=== PATIENT | female | born 1945 | race Caucasian/White ===

== ENCOUNTER 2017-02-28 07:01 | Emergency (ER) | payer MEDICARE ==
[2017-02-28 07:59] LABS: BASOPHILS 0.2 % (0.0-2.0); EOSINOPHILS 0.8 % (0-7); HEMATOCRIT 35.8 % (36.0-48.0); HEMOGLOBIN 11.4 g/dL (12-16); IMMATURE GRANULOCYTES 0.3 % (0-5); LYMPHOCYTES 12.5 % (15-50); MCH 30.3 pg (26.0-34.0); MCHC 31.8 g/dL (31.0-37.0); MCV 95.2 fL (80.0-100.0); MONOCYTES 3.9 % (2-11); NEUTROPHILS 82.3 % (40-80); PLATELET COUNT 351 10x3/uL (130-400); RBC 3.76 10x6/uL (4.00-5.40); RDW 13.3 % (11.5-14.5); WBC 6.7 10x3/uL (4.8-10.8)
[2017-02-28 08:10] LABS: ALBUMIN 3.6 g/dL (3.4-5.0); ALKALINE PHOSPHATASE 103 U/L (46-116); ALT (SGPT) 37 U/L (10-68); BILIRUBIN - TOTAL 0.21 mg/dL (0.2-1.3); CALC OSMOLALITY 290 mosm/kg (275-300); CALCIUM 10.5 mg/dL (8.5-10.1); CARBON DIOXIDE 30.7 mmol/L (21.0-32.0); CHLORIDE - SERUM 104 mmol/L (98-107); CREATININE - SERUM 1.6 mg/dL (0.6-1.3); GLUCOSE 104 mg/dL (74-106); POTASSIUM - SERUM 3.6 mmol/L (3.5-5.1); PROTEIN - SERUM 6.3 g/dL (6.4-8.2); SODIUM 144 mmol/L (136-145); UREA NITROGEN 24 mg/dL (7-18); eGFR NON AFRICAN AMERICAN 34 mL/min (90-120)
[2017-02-28 08:21] LABS: CHOL - HDL RATIO 2.8 ratio (2.3-4.1); CHOLESTEROL, TOTAL 219 mg/dL (0-200); CREATINE KINASE 58 UL (21-215); HDL CHOLESTEROL 78 mg/dL (32-96); LDL CHOLESTEROL 118 mg/dL (0-100); LDL-HDL RATIO 1.5 ratio (1.5-3.5); TRIGLYCERIDE 119 mg/dL (30-200)
[2017-02-28 08:22] LABS: TROPONIN-I < 0.017 ng/mL (0.000-0.060)
== END 2017-02-28 12:01 | disposition home or self-care (01) ==
LOC: D.ER 07:01
PROVIDERS: Emergency Medicine
DX: K21.9 Gastro-esophageal reflux disease without esophagitis (principal); J44.9 Chronic obstructive pulmonary disease, unspecified; I10 Essential (primary) hypertension; F32.9 Major depressive disorder, single episode, unspecified; C95.90 Leukemia, unspecified not having achieved remission

== ENCOUNTER 2017-06-27 11:33 | Day surgery (SDC) | payer MEDICARE ==
[~2017-06-27] VITALS: Ht 175.3 cm; Wt 78.6 kg
[2017-06-27] MEDS ORDERED: ZYLOPRIM300 MG PO (12:43)
[2017-06-27] MEDS ORDERED: BUPROPION HCL75 MG PO (12:44)
[2017-06-27 12:51] LABS: HEMATOCRIT 33.6 % (36.0-48.0); HEMOGLOBIN 10.7 g/dL (12-16); MCH 27.9 pg (26.0-34.0); MCHC 31.8 g/dL (31.0-37.0); MCV 87.7 fL (80.0-100.0); MEAN PLATELET VOLUME 9.2 fL (7.4-10.4); RBC 3.83 10x6/uL (4.00-5.40); WBC 8.5 10x3/uL (4.8-10.8)
[2017-06-27] MEDS ORDERED: PHENERGAN25 M1 PO (12:53)
[2017-06-27] MEDS ORDERED: REGLAN10 MG PO (12:54)
[2017-06-27] MEDS ORDERED: OMEPRAZOLE40 MG PO (12:55)
[2017-06-27] MEDS ORDERED: ROZEREM8 MG PO (12:56)
[2017-06-27] MEDS ORDERED: BUSPAR5 MG PO (12:57)
[2017-06-27] MEDS ORDERED: CARAFATE1 G PO (12:58)
[2017-06-27] MEDS ORDERED: PEPCID40 MG PO (12:59)
[2017-06-27] MEDS ORDERED: KLOR-CON M2020 MEQ PO (13:01)
[2017-06-27] MEDS ORDERED: EFFEXOR75 MG PO (13:02)
[2017-06-27] MEDS ORDERED: DILT-XR240 MG PO (13:05)
[2017-06-27 13:19] VITALS: BP 126/75; Ht 175.3 cm; Wt 78.6 kg
--- NOTE | 2017-06-27 14:49 | NUR ---
1445 DISCHARGE INSTRUCTIONS COMPLETE. NO QUESTIONS OR CONCERNS AT THIS TIME. ESCORTED OUT AND ACCOMPANIED BY DAUGHTER.
--- NOTE | 2017-06-29 08:48 | OP ---
PATIENT NAME: REGULO DIAZ MEDICAL RECORD: [id number] :47 LOCATION:[facility] ADMISSION DATE: SURGEON: JANNETTE CASTILLO DO DATE OF OPERATION: 06/27/2017 PROCEDURE: EGD. INDICATION FOR PROCEDURE: Nausea, generalized abdominal pain, melenic stools, abnormal weight loss. SCOPE: Olympus video gastroscope. MEDICATIONS: Propofol 100 mg IV per anesthesia. ESTIMATED BLOOD LOSS: Minimal. COMPLICATIONS: None. FINDINGS: Informed consent was given. The patient was made comfortable with the above medication. After reaching an adequate level of sedation by slow IV push, the patient was placed on her left side. The endoscope was advanced under direct visualization through the mouth to the third portion of the duodenum. The upper, middle, and lower thirds of the esophagus appeared normal. At the GE junction, there was very mild evidence of LA class A reflux-induced esophagitis. The endoscope was advanced beyond the GE junction and retroflexed to view the cardia where a small sliding hiatal hernia was present. In the fundus and body of the stomach, there appeared to be some congestion/edema. As the endoscope was advanced down to the antrum and prepyloric region, there was erythema and granularity consistent with gastritis. Random biopsies were taken to submit for histology and to rule out H. pylori. The endoscope was advanced beyond the pylorus into the duodenum where the bulb and second portion as well as the third portion of the duodenum appeared normal. The scope was withdrawn from the patient. The patient tolerated the procedure well and there were no complications. IMPRESSION: 1. LA class A reflux-induced esophagitis. 2. Small sliding hiatal hernia. 3. Erythema, granularity, and congestion consistent with gastritis with biopsies taken. PLAN AND RECOMMENDATIONS: 1. Discharge home when recovery parameters are met. 2. Proceed with colonoscopy as scheduled. 3. GERD diet and reflux precautions. 4. Continue current medications including omeprazole 40 mg daily and Carafate 1 gram q.i.d. 5. Follow up biopsy specimen results. 6. Further recommendations will follow biopsy results and findings at time of colonoscopy. TRANSINT:[id number] Voice Confirmation ID: [id number] DOCUMENT ID: [id number] OPERATIVE REPORT [id number] REGULO DIAZ JANNETTE CASTILLO DO at 7267 CC: [id number] DICTATION DATE: 06/27/17 1404 BLINTZE ROLLER: 06/27/[address] [facility] [place] 06/27/17 [place] [id number] [place] [id number]
== END 2017-06-27 14:45 | disposition home or self-care (01) ==
LOC: D.OPS 11:33
PROVIDERS: Internal Medicine Gastroenterology
DX: R63.4 Abnormal weight loss (principal); R10.9 Unspecified abdominal pain; I10 Essential (primary) hypertension; G47.30 Sleep apnea, unspecified; Z87.891 Personal history of nicotine dependence; Z01.812 Encounter for preprocedural laboratory examination

== ENCOUNTER 2017-07-09 06:06 | Day surgery (SDC) | payer MEDICARE ==
[~2017-07-09] VITALS: Ht 175.3 cm; Wt 78.6 kg
[~2017-07-09 06:06] MED LIST: BUPROPION HCL75 MG PO; BUSPAR5 MG PO; CARAFATE1 G PO; DILT-XR240 MG PO; EFFEXOR75 MG PO; KLOR-CON M2020 MEQ PO; OMEPRAZOLE40 MG PO; PEPCID40 MG PO; PHENERGAN25 M1 PO; REGLAN10 MG PO; ROZEREM8 MG PO; ZYLOPRIM300 MG PO
[2017-07-09 07:03] LABS: BASOPHILS 0 % (0-2); EOSINOPHILS 0.7 % (0-7); HEMATOCRIT 34.5 % (36.0-48.0); HEMOGLOBIN 11.2 g/dL (12-16); IMMATURE GRANULOCYTES 0.2 % (0-5); LYMPHOCYTES 14.7 % (15-50); MCH 28.1 pg (26.0-34.0); MCHC 32.5 g/dL (31.0-37.0); MCV 86.5 fL (80.0-100.0); MEAN PLATELET VOLUME 9.4 fL (7.4-10.4); MONOCYTES 3.4 % (2-11); PLATELET COUNT 455 10x3/uL (130-400); RBC 3.99 10x6/uL (4.00-5.40); RDW 14.8 % (11.5-14.5); WBC 10.2 10x3/uL (4.8-10.8)
[2017-07-09] MEDS ORDERED: ACETAMINOPHEN500 M1 PO (07:06)
[2017-07-09 07:08] LABS: APTT 27.7 SECONDS (22.8-39.4); INR 1.01 (0.85-1.17); PROTIME 13.1 SECONDS (11.6-15.0)
[2017-07-09 07:09] VITALS: BP 138/80; Ht 175.3 cm; Wt 78.6 kg
--- NOTE | 2017-07-09 10:20 | NUR ---
1000-RECD FROM GI LAB. ALERT. RESP WITH EASE. 1015-FULL LIQUIDS SERVED.
--- NOTE | 2017-07-09 10:48 | NUR ---
1045-DISCHARGE INSTRUCTIONS REVIEWED. SISTER CALLED TO TRANSPORT HER HOME.
--- NOTE | 2017-07-10 09:13 | OP ---
PATIENT NAME: REGULO DIAZ MEDICAL RECORD: [id number] :47 LOCATION:D[facility] ADMISSION DATE: SURGEON: JANNETTE CASTILLO DO DATE OF OPERATION: 07/09/2017 PROCEDURE: Colonoscopy with biopsy and polypectomy. INDICATIONS FOR PROCEDURE: Diarrhea, abnormal weight loss, generalized abdominal pain. SCOPE: [employer] video pediatric colonoscope. MEDICATIONS: Propofol 600 mg IV per anesthesia. WITHDRAWAL TIME: 30 minutes. ESTIMATED BLOOD LOSS: Minimal. COMPLICATIONS: None. FINDINGS: Informed consent was given. The patient was made comfortable with the above medication. After reaching an adequate level of sedation by slow IV push, the patient was placed on her left side. A digital rectal examination was performed and was normal. The endoscope was then advanced under direct visualization through the rectum to the terminal ileum. Scope was slowly withdrawn and mucosa was carefully examined. The prep quality was good. There were 2 cecal polyps which were benign-appearing and sessile. They measured approximately 3-5 mm in diameter. Both were removed with hot snare in 1 piece and completely retrieved. There were 3 smaller benign-appearing sessile polyps measuring approximately 3-6 mm in diameter. They were all removed using a hot snare in 1 piece and completely retrieved. There was a larger transverse polyp which measured approximately 1.2-1.4 cm in size. It was a semi-pedunculated with a very small and narrow stalk as well as a short stalk. It was removed using a hot snare and completely retrieved with the [employer]. There was a small remaining segment of polypoid tissue at the base of the stomach which was completely removed with a snare and then the edges were ablated using the tip of the snare. In the descending colon, there were 3 benign-appearing sessile polyps, which measured approximately 3-6 mm in diameter. They were all removed with a hot snare in 1 piece and completely retrieved. Random biopsies were taken throughout the colon to submit for histology and to rule out microscopic colitis. Stool was collected during the study to rule out infectious disease contributing to diarrhea. In the rectum, there were some erythematous spots with very small central ulcerations which could be prep related. Biopsies were taken with cold forceps to submit for histology. Retroflexion was performed in the rectum with a normal appearance. The scope was then withdrawn from the patient. The patient tolerated the procedure well and there were no complications. IMPRESSION: 1. Multiple polyps as described above, removed with hot snare and retrieved. 2. Possible proctitis versus prep related colitis. Biopsies taken. 3. Random biopsies were taken and stool was collected to rule out infectious disease and microscopic colitis as cause of diarrhea. 4. There was moderate diverticulosis of the descending and sigmoid colon. OPERATIVE REPORT [id number] REGULO DIAZ PLAN AND RECOMMENDATIONS: 1. Discharge home when recovery parameters are met. 2. Follow up biopsy specimen results. 3. High fiber diet. 4. Continue current medications. 5. Okay to use Imodium qsbx-vty-nsekfis for loose stools. 6. We will provide a prescription for diet dicyclomine 20 mg b.i.d. p.r.n. loose stools or abdominal pain. 7. Recall colonoscopy will be dependent on results of biopsy specimens, but I anticipate a 6 month to 1 year recall regarding the polyps removed and the number of polyps. This may change once the pathology report is received. 8. Further recommendations following results of biopsy specimens. TRANSINT:[id number] Voice Confirmation ID: [id number] DOCUMENT ID: [id number] JANNETTE CASTILLO DO at 0913 CC: [id number] DICTATION DATE: 07/09/17 0942 [employer] P[employer] MACH[employer] OPERATOR: 07/09/17 1524 [facility] 07/09/17 [place] [id number] [place] [address]
== END 2017-07-09 10:45 | disposition home or self-care (01) ==
LOC: D.OPS 06:06
PROVIDERS: Anesthesiology
DX: R19.7 Diarrhea, unspecified (principal); R10.84 Generalized abdominal pain; R63.4 Abnormal weight loss; I10 Essential (primary) hypertension; K21.9 Gastro-esophageal reflux disease without esophagitis; D12.0 Benign neoplasm of cecum; D12.3 Benign neoplasm of transverse colon; D12.4 Benign neoplasm of descending colon; Z01.812 Encounter for preprocedural laboratory examination

== ENCOUNTER 2020-06-14 08:36 | Day surgery (SDC) | payer MEDICARE ==
[~2020-06-14] VITALS: Ht 175.3 cm; Wt 91.8 kg
[~2020-06-14 08:36] MED LIST changes: +ACETAMINOPHEN500 M1 PO
[2020-06-14 09:05] LABS: BASOPHILS 0 % (0-2); EOSINOPHILS 1.2 % (0-7); HEMATOCRIT 40.5 % (36.0-48.0); HEMOGLOBIN 12.9 g/dL (12-16); IMMATURE GRANULOCYTES 0.2 % (0-5); LYMPHOCYTES 14.5 % (15-50); MCH 31.7 pg (26.0-34.0); MCHC 31.9 g/dL (31.0-37.0); MCV 99.5 fL (80.0-100.0); MEAN PLATELET VOLUME 9.9 fL (7.4-10.4); MONOCYTES 7.5 % (2-11); NEUTROPHILS 76.6 % (40-80); PLATELET COUNT 342 10x3/uL (130-400); RBC 4.07 10x6/uL (4.00-5.40); WBC 9.2 10x3/uL (4.8-10.8)
[2020-06-14 09:14] LABS: ANION GAP 14.4 mmol/L (8-16); CALCIUM 8.4 mg/dL (8.5-10.1); CARBON DIOXIDE 26.9 mmol/L (21.0-32.0); CREATININE - SERUM 2.4 mg/dL (0.6-1.3); POTASSIUM - SERUM 3.3 mmol/L (3.5-5.1)
[2020-06-14] MEDS ORDERED: PROAIR HFA8.5 G1 (09:30)
[2020-06-14] MEDS ORDERED: CRESTOR20 MG PO (09:35)
[2020-06-14] MEDS ORDERED: JAKAFI5 MG PO (09:36)
[2020-06-14] MEDS ORDERED: ULTRAM50 MG PO (09:37)
[2020-06-14] MEDS ORDERED: KLONOPIN0.5 MG PO (09:38)
[2020-06-14] MEDS ORDERED: TOPROL XL50 MG PO (09:39)
[2020-06-14 09:45] VITALS: BP 131/92; Ht 175.3 cm; Wt 91.8 kg
--- NOTE | 2020-06-14 11:35 | NUR ---
DC INSTRUCTIONS GIVEN TO PT. STATES UNDERSTANDING. PT'S ANIMAL IMPERSONATOR WAS CALLED AND WAS TOLD TO ARRIVE TO [facility] H[facility]PITAL AT NOON TO SIGNAL PERSON PT.
--- NOTE | 2020-06-14 11:50 | NUR ---
DC'D IV CATH FULLY INTACT. WILL DC PT FROM HOSPITAL SHORTLY
--- NOTE | 2020-06-14 11:53 | NUR ---
PT LEFT UNIT VIA WC AT 1157
--- NOTE | 2020-06-15 15:26 | OP ---
PATIENT NAME: REGULO DIAZ MEDICAL RECORD: [id number] :47 LOCATION:[facility] ADMISSION DATE: SURGEON: JANNETTE CASTILLO DO DATE OF OPERATION: 06/14/2020 PROCEDURE: Colonoscopy with polypectomy. INDICATIONS FOR PROCEDURE: Screening for colorectal cancer, family history positive for colon cancer in the patient's father, personal history of colon polyps. The patient's last colonoscopy was in 2017. SCOPE: Olympus video pediatric colonoscope. MEDICATIONS: Propofol 550 mg IV per anesthesia. WITHDRAWAL TIME: 25 minutes. ESTIMATED BLOOD LOSS: Minimal. COMPLICATIONS: None. FINDINGS: Informed consent was given. The patient was made comfortable with the above medication. After reaching an adequate level of sedation by slow IV push, the patient was placed on her left side. The endoscope was advanced under direct visualization through the rectum to the cecum and terminal ileum. The endoscope was slowly withdrawn and mucosa was carefully examined. The prep quality was good. There was evidence of sepdhstg-gq-lpnsuw diverticulosis involving the sigmoid and descending colon There were a few scattered diverticula throughout the rest of the colon. There were multiple polyps visualized on today's examination. The first was located in the cecum. It was a benign appearing sessile polyp, which measured approximately 3-4 mm in diameter. It was removed using hot snare. In the ascending colon, there were 3 separate polyps, which were benign -appearing and sessile. They ranged in size from 3mm-7mm in diameter. The 2 largest polyps were removed using a hot snare and the smallest was removed using hot forceps. In the transverse colon, there were four separate benign appearing sessile polyps, which ranged in size from 3-6 mm in diameter. They were all removed using a hot snare. In the descending colon, there were two separate benign-appearing sessile polyps, which ranged in size from 3-4 mm in diameter. They were removed using a hot snare. Retroflexion was performed in the rectum with visualization of a normal appearing rectal wall. The endoscope was withdrawn from the patient. The patient tolerated the procedure well and there were no complications. IMPRESSION: 1. Multiple polyps as described above, removed using a combination of a hot snare and hot forceps. 2. Moderate to severe diverticulosis. PLAN AND RECOMMENDATIONS: 1. Discharge home when recovery parameters are met. 2. Follow up biopsy specimen results. 3. High fiber diet. 4. Continue current medications. 5. Recall colonoscopy in 2-3 years based on strong personal history of polyps and family history of colon cancer. OPERATIVE REPORT [id number] REGULO DIAZ TRANSINT:[id number] Voice Confirmation ID: [id number] DOCUMENT ID: [id number] JANNETTE CASTILLO DO at 1526 CC: [id number] DICTATION DATE: 06/14/20 111 [employer]: 06/14/202122 [facility] 06/14/20 [place] [id number] [place] [address]
== END 2020-06-14 11:57 | disposition home or self-care (01) ==
LOC: D.OPS 08:36
PROVIDERS: Anesthesiology; ATTEND Internal Medicine Gastroenterology
DX: Z12.11 Encounter for screening for malignant neoplasm of colon (principal); Z80.0 Family history of malignant neoplasm of digestive organs; Z86.010 Personal history of colon polyps; K63.5 Polyp of colon